=== PATIENT | male | born 1985 | race Caucasian/White ===

== ENCOUNTER 2024-10-10 10:26 | Emergency (ER) | payer BC, OTHER ==
[2024-10-10] MEDS: Diphtheria,Pertussis(Acell),Tetanus Vaccine 0.5 ML Syringe IM ONE (10:56)
== END 2024-10-10 11:04 | disposition home or self-care (01) ==
LOC: VM.ED 10:26
DX: S41.112A Laceration without foreign body of left upper arm, initial encounter (principal); W26.0XXA Contact with knife, initial encounter
CPT/HCPCS: 12002; 90471; 90715; 99282-25; 99283